=== PATIENT | male | born 1990 | race Caucasian/White ===

== ENCOUNTER 2021-11-06 18:10 | Emergency (ER) | payer BC, OTHER ==
[~2021-11-06] VITALS: Ht 175.3 cm; Wt 81.2 kg
[2021-11-06] MEDS ORDERED: KETOROLAC TROMETHAMINE 60 MG/2 ML VIAL IM ONE (19:05)
[2021-11-06] MEDS ORDERED: NAPROSYN500 MG PO (20:27)
[2021-11-06] MEDS ORDERED: HYDROCODON-ACE1 EAC9 PO (20:27)
== END 2021-11-06 20:47 | disposition home or self-care (01) ==
LOC: ER 18:37
DX: R07.89 Other chest pain (principal); S22.31XA Fracture of one rib, right side, initial encounter for closed fracture; Y93.75 Activity, martial arts; Y92.89 Other specified places as the place of occurrence of the external cause
CPT/HCPCS: 71101; 99283; J1885